=== PATIENT | male | born 1980 | race Asian ===

== ENCOUNTER → 2017-02-12 | Outpatient (CLI) | payer OTHER ==
[2017-03-06 10:08] LABS: POTASSIUM 3.9 mmol/L (3.5-5.1)
[2017-03-06 10:09] LABS: BILIRUBIN,TOTAL 0.3 mg/dL (0.1-1.0); CALCIUM, TOTAL 8.8 mg/dL (8.8-10.5); CREATININE 1.35 mg/dL (0.60-1.30); TOTAL PROTEIN, SERUM 7.4 g/dL (6.4-8.2)
== END | disposition home or self-care (01) ==
LOC: LABMN 21:23
PROVIDERS: ATTEND Psychiatry & Neurology Neurology
DX: G40.209 Localization-related (focal) (partial) symptomatic epilepsy and epileptic syndromes with complex partial seizures, not intractable, without status epilepticus (principal)
CPT/HCPCS: 80175; 80183